=== PATIENT | male | born 1985 | race Two or more races ===

== ENCOUNTER 2023-05-10 12:14 | Emergency (ER) | payer BC | END 2023-05-10 13:42 | disposition home or self-care (01) | LOC: JD.ED 12:14 | DX: M53.3 Sacrococcygeal disorders, not elsewhere classified (principal); J45.909 Unspecified asthma, uncomplicated; Z86.16 Personal history of COVID-19; Z79.899 Other long term (current) drug therapy | CPT/HCPCS: 72220; 72220-26; 99283 ==